=== PATIENT | female | born 1930 | race Caucasian/White ===

== ENCOUNTER 2017-07-12 14:17 | Emergency (ER) | payer OTHER ==
[~2017-07-12] VITALS: Ht 160 cm; Wt 57.6 kg
[2017-07-12 15:01] VITALS: Ht 160 cm; Wt 57.6 kg
[2017-07-12 19:19] LABS: BASOPHIL % 0.5 % (0-2); PLATELET COUNT 213 x10^3mcL (130-400)
[2017-07-12 19:21] LABS: RED CELL DISTRIBUTION WIDTH 14.6 % (11.5-14.5)
[2017-07-12 19:47] LABS: CALCIUM 10.5 mg/dL (8.5-10.1); CARBON DIOXIDE 21.3 mmol/L (21-32); CHLORIDE SERUM 103 mmol/L (98-107); CREATININE SERUM 1.7 mg/dL (0.6-1.0); GLUCOSE SERUM 91 mg/dL (74-106); POTASSIUM SERUM 4.3 mmol/L (3.5-5.1); SODIUM SERUM 136 mmol/L (136-145)
[2017-07-12 19:51] LABS: ALBUMIN 3.5 g/dL (3.4-5.0); ALKALINE PHOSPHATASE 50 U/L (46-116); ALT/SGPT 20 U/L (14-59); AST/SGOT 18 U/L (15-37); BILIRUBIN TOTAL 0.39 mg/dL (0.20-1.00); TOTAL PROTEIN, SERUM 7.1 g/dL (6.4-8.2)
[2017-07-12 21:08] VITALS: BP 150/76
== END 2017-07-12 21:04 | disposition home or self-care (01) ==
LOC: ED 14:17
PROVIDERS: Emergency Medicine
DX: J44.1 Chronic obstructive pulmonary disease with (acute) exacerbation (principal); G89.29 Other chronic pain; M54.5 Low back pain; R60.0 Localized edema; N28.9 Disorder of kidney and ureter, unspecified; I10 Essential (primary) hypertension; F17.210 Nicotine dependence, cigarettes, uncomplicated
CPT/HCPCS: 36415; 83880; J7512

== ENCOUNTER 2018-06-26 16:21 | Inpatient (IN) | payer OTHER ==
[~2018-06-26] VITALS: Ht 152.4 cm; Wt 53.5 kg
[2018-06-26 16:50] VITALS: Ht 152.4 cm; Wt 53.5 kg
[2018-06-26 20:34] LABS: PLATELET COUNT 231 x10^3mcL (130-400)
[2018-06-26 20:44] LABS: CARBON DIOXIDE 24.3 mmol/L (21-32); CHLORIDE SERUM 96 mmol/L (98-107); CREATININE SERUM 3.7 mg/dL (0.6-1.0); GLUCOSE SERUM 98 mg/dL (74-106); POTASSIUM SERUM 4.3 mmol/L (3.5-5.1); SODIUM SERUM 129 mmol/L (136-145)
[2018-06-26 20:49] LABS: ALKALINE PHOSPHATASE 68 U/L (46-116); ALT/SGPT 14 U/L (14-59); AST/SGOT 14 U/L (15-37); BILIRUBIN TOTAL 0.49 mg/dL (0.20-1.00); LIPASE 135 IU/L (73-393); RED CELL DISTRIBUTION WIDTH 15.1 % (11.5-14.5); TOTAL PROTEIN, SERUM 6.5 g/dL (6.4-8.2)
[2018-06-26 20:50] LABS: ALBUMIN 2.7 g/dL (3.4-5.0)
[2018-06-26 20:56] LABS: BAND NEUTROPHIL 2 % (0-10); MONOCYTE 5 % (0-7); SEGMENTED NEUTROPHILS 80 % (37-75)
[2018-06-26 20:57] LABS: PLATELET MORPHOLOGY PLATELETS NORMAL; rbc morphology (normal/abnorm) ABNORMAL (NORMAL)
[2018-06-26] MEDS ORDERED: ROC25 PO (22:41)
[2018-06-26] MEDS ORDERED: COREG6.25 M1 PO (22:41)
[2018-06-26] MEDS ORDERED: NOR10 PO (22:41)
[2018-06-26] MEDS ORDERED: CELEBREX200 MG PO (22:42)
[2018-06-26] MEDS ORDERED: VITD PO (22:42)
[2018-06-26] MEDS ORDERED: OSTEO BI-FLEX1 EAC2 PO (22:43)
[2018-06-26] MEDS ORDERED: LATANOPROST2.5 ML OU (22:44)
[2018-06-26] MEDS ORDERED: [UNRECOGNIZED DRUG - OTHER] PO (22:44)
[2018-06-26] MEDS ORDERED: AZOPT10 ML (22:46)
[2018-06-26] MEDS ORDERED: BREO ELLIPTA1 POW IH (22:47)
[2018-06-26] MEDS ORDERED: PROVENTIL0.09 MG/A1 INH (22:47)
[2018-06-26] MEDS ORDERED: SPIRIVA18 MC1 INH (22:47)
[2018-06-26 23:35] VITALS: BP 136/66
[2018-06-27 00:58] LABS: MAGNESIUM 2.1 mg/dL (1.8-2.4); PHOSPHOROUS 4.3 mg/dL (2.5-4.9)
[2018-06-27 00:59] LABS: CHOLESTEROL/HDL RATIO 3.9
[2018-06-27 01:02] LABS: T3 TOTAL 0.68 ng/mL
[2018-06-27 01:20] LABS: FREE T4 1.93 ng/dL (0.76-1.46); FREE THYROXINE INDEX 4.3 ug/dL (1.4-4.5); T4(THYROXINE) 10.7 ug/dL (4.7-13.3)
[2018-06-27 06:11] LABS: BASOPHIL % 0.1 % (0-2); PLATELET COUNT 203 x10^3mcL (130-400)
[2018-06-27 06:27] LABS: CALCIUM 9.7 mg/dL (8.5-10.1); CHLORIDE SERUM 102 mmol/L (98-107); CREATININE SERUM 3.4 mg/dL (0.6-1.0); GLUCOSE SERUM 80 mg/dL (74-106); POTASSIUM SERUM 3.6 mmol/L (3.5-5.1); SODIUM SERUM 134 mmol/L (136-145)
[2018-06-27 06:57] VITALS: BP 126/63
[2018-06-27 07:05] LABS: RED CELL DISTRIBUTION WIDTH 14.9 % (11.5-14.5)
[2018-06-27 09:13] VITALS: BP 121/56
[2018-06-27 13:08] VITALS: BP 111/59
[2018-06-27 16:42] VITALS: BP 134/66
[2018-06-27 22:36] VITALS: BP 127/60
[2018-06-27 23:15] LABS: microscopic required? YES; urine erythrocyte NEGATIVE (NEGATIVE)
[2018-06-28 06:02] VITALS: BP 119/57
[2018-06-28 06:36] LABS: CALCIUM 10.4 mg/dL (8.5-10.1); CARBON DIOXIDE 22.2 mmol/L (21-32); CHLORIDE SERUM 101 mmol/L (98-107); CREATININE SERUM 2.8 mg/dL (0.6-1.0); GLUCOSE SERUM 107 mg/dL (74-106); MAGNESIUM 1.8 mg/dL (1.8-2.4); PHOSPHOROUS 2.9 mg/dL (2.5-4.9); POTASSIUM SERUM 3.9 mmol/L (3.5-5.1); SODIUM SERUM 134 mmol/L (136-145)
[2018-06-28 06:39] LABS: BASOPHIL % 0.1 % (0-2); PLATELET COUNT 246 x10^3mcL (130-400)
[2018-06-28 06:46] LABS: RED CELL DISTRIBUTION WIDTH 15.4 % (11.5-14.5)
[2018-06-28 09:18] VITALS: BP 133/62
[2018-06-28 09:35] VITALS: BP 133/62
[2018-06-28 13:16] VITALS: BP 117/59
[2018-06-28 16:42] VITALS: BP 131/58
[2018-06-28 22:09] VITALS: BP 133/59
[2018-06-29 06:02] VITALS: BP 183/60
[2018-06-29 06:16] LABS: PLATELET COUNT 212 x10^3mcL (130-400)
[2018-06-29 06:24] LABS: BASOPHIL % 0 % (0-2); RED CELL DISTRIBUTION WIDTH 14.6 % (11.5-14.5)
[2018-06-29 06:46] LABS: CALCIUM 10.1 mg/dL (8.5-10.1); CARBON DIOXIDE 21.2 mmol/L (21-32); CHLORIDE SERUM 105 mmol/L (98-107); CREATININE SERUM 2.5 mg/dL (0.6-1.0); GLUCOSE SERUM 105 mg/dL (74-106); MAGNESIUM 1.7 mg/dL (1.8-2.4); PHOSPHOROUS 2.9 mg/dL (2.5-4.9); POTASSIUM SERUM 3.7 mmol/L (3.5-5.1); SODIUM SERUM 137 mmol/L (136-145)
[2018-06-29 08:16] VITALS: BP 132/60
[2018-06-29 12:18] VITALS: BP 123/62
[2018-06-29 16:26] VITALS: BP 108/42
[2018-06-29 21:50] VITALS: BP 127/58
[2018-06-30 05:14] VITALS: BP 132/100
[2018-06-30 06:39] LABS: BASOPHIL % 0.1 % (0-2); PLATELET COUNT 254 x10^3mcL (130-400)
[2018-06-30 07:05] LABS: RED CELL DISTRIBUTION WIDTH 15.4 % (11.5-14.5)
[2018-06-30 07:08] LABS: CALCIUM 9.7 mg/dL (8.5-10.1); CARBON DIOXIDE 20.3 mmol/L (21-32); CHLORIDE SERUM 107 mmol/L (98-107); CREATININE SERUM 2.4 mg/dL (0.6-1.0); GLUCOSE SERUM 97 mg/dL (74-106); MAGNESIUM 1.7 mg/dL (1.8-2.4); PHOSPHOROUS 2.6 mg/dL (2.5-4.9); POTASSIUM SERUM 3.9 mmol/L (3.5-5.1); SODIUM SERUM 139 mmol/L (136-145)
[2018-06-30 10:26] VITALS: BP 123/52
[2018-06-30 13:59] VITALS: BP 128/62
[2018-06-30 18:33] VITALS: BP 138/62
[2018-06-30 22:28] VITALS: BP 138/60
[2018-07-01 05:47] VITALS: BP 129/66
[2018-07-01 07:37] LABS: CALCIUM 9.5 mg/dL (8.5-10.1); CARBON DIOXIDE 18.8 mmol/L (21-32); CHLORIDE SERUM 108 mmol/L (98-107); CREATININE SERUM 2.2 mg/dL (0.6-1.0); GLUCOSE SERUM 102 mg/dL (74-106); MAGNESIUM 1.8 mg/dL (1.8-2.4); PHOSPHOROUS 2.3 mg/dL (2.5-4.9); POTASSIUM SERUM 3.8 mmol/L (3.5-5.1); SODIUM SERUM 138 mmol/L (136-145)
[2018-07-01 08:17] LABS: BASOPHIL % 0.1 % (0-2); PLATELET COUNT 302 x10^3mcL (130-400); RED CELL DISTRIBUTION WIDTH 14.2 % (11.5-14.5)
[2018-07-01 10:09] VITALS: BP 150/69
[2018-07-01 12:54] VITALS: BP 129/59
[2018-07-01 13:50] VITALS: BP 129/59
[2018-07-01] MEDS ORDERED: ZOF4 PO (14:16)
[2018-07-01] MEDS ORDERED: LEVAQUIN750 MG PO (14:18)
[2018-07-01] MEDS ORDERED: FLA250 PO (14:19)
[2018-07-01] MEDS ORDERED: ATIVAN0.5 M1 PO (14:26)
[2018-07-01 14:39] LABS: BASOPHIL % 0.5 % (0-2); PLATELET COUNT 325 x10^3mcL (130-400); RED CELL DISTRIBUTION WIDTH 14.2 % (11.5-14.5)
== END 2018-07-01 16:14 | disposition home health service (06) | DRG 391 ==
LOC: ED 16:21 → MU 22:38 → DU 22:38 → MU 23:05 → DU 06-27 07:50
PROVIDERS: Emergency Medicine; Family Medicine; Internal Medicine
DX: K57.32 Diverticulitis of large intestine without perforation or abscess without bleeding (principal); K65.9 Peritonitis, unspecified; N17.0 Acute kidney failure with tubular necrosis; E43 Unspecified severe protein-calorie malnutrition; K56.7 Ileus, unspecified; E87.1 Hypo-osmolality and hyponatremia; J44.1 Chronic obstructive pulmonary disease with (acute) exacerbation; E86.0 Dehydration; E83.52 Hypercalcemia; I10 Essential (primary) hypertension; M19.90 Unspecified osteoarthritis, unspecified site; H35.30 Unspecified macular degeneration; Z66 Do not resuscitate; Z68.22 Body mass index [BMI] 22.0-22.9, adult; F17.210 Nicotine dependence, cigarettes, uncomplicated; Z85.51 Personal history of malignant neoplasm of bladder
CPT/HCPCS: 83880; 84439; 87046; 87046-59; 90732; 94150; 97110-GP; 97116-GP; J1956; J2405; J3490; J3535; J7030; J7620; Q0092